=== PATIENT | female | born 1940 | race Caucasian/White ===

== ENCOUNTER 2017-05-07 16:24 | Inpatient (IN) ==
--- NOTE | 2017-05-07 16:44 | Emergency Department Note ---
Disposition Clinical Impression: Focal neurological deficit, Dysarthria Disposition: Admitted As Inpatient Condition: Fair Time of Disposition: 18:50 Neuro HPI - General Chief Complaint: ED Neuro Symptoms/Deficit Stated Complaint: Neuro sx x 7 days, intermittent confusion Source: patient, EMS Limitations: no limitations Nursing Notes Reviewed: Yes Vital Signs Reviewed: Yes - History of Present Illness HPI Narrative: Patient is a 76-year-old female with history of hyperlipidemia hypertension, thyroid disease and heart disease who complains of right arm weakness 6 days ago. Patient states states that he noticed her dropping remote control the patient complained that her right upper extremity was weak. He also noticed the patient was unsteady on her feet. He states that patient refused to come to the hospital but made her come today. Patient also states that she has some confusion. Patient admits to smoking, denies alcohol use and illicit drug use. - Related Data Home Medications: Home Medications Medication Instructions Recorded Confirmed Acyclovir [Zovirax] 800 mg PO QID 05/07/17 05/07/17 Amlodipine Besylate 10 mg PO DAILY 05/07/17 05/07/17 Aspirin 325 mg PO DAILY 05/07/17 05/07/17 Atenolol 100 mg PO DAILY 05/07/17 05/07/17 Atorvastatin [Lipitor] 40 mg PO HS 05/07/17 05/07/17 Clopidogrel [Plavix] 75 mg PO DAILY 05/07/17 05/07/17 Cyclobenzaprine [Flexeril] 10 mg PO HS PRN 05/07/17 05/07/17 Diclofenac Sodium/Misoprostol 1 each PO BID 05/07/17 05/07/17 [Arthrotec 75 mg-200 Mcg Tab] Levothyroxine [Synthroid] 112 mcg PO 0630 05/07/17 05/07/17 Lisinopril [Zestril] 10 mg PO BID 05/07/17 05/07/17 Omeprazole [PriLOSEC] 40 mg PO DAILY PRN 05/07/17 05/07/17 Tramadol HCl [Ultram] 50 mg PO BID PRN 05/07/17 05/07/17 Zolpidem [Ambien] 10 mg PO HS PRN 05/07/17 05/07/17 Allergies/Adverse Reactions: Allergies Allergy/AdvReac Type Severity Reaction Status Date / Time Sulfa (Sulfonamide Allergy Hives Verified 03/30/17 11:03 Antibiotics) Review of Systems: Denies fever, chills, nausea, vomiting, diarrhea, chest pain, shortness of breath, abdominal pain, dysuria, hematuria, diarrhea, melena, hematochezia. All systems ED: reviewed and negative except as stated. Review of Systems: As Per HPI Past Medical History - Past Medical History Attestation: Yes The following information was validated with the patient. Source: patient Medical history: Reports: coronary artery disease, hyperlipidemia, hypertension , thyroid disease Psychiatric history: Reports: no psych history - Social History Smoking Status: Current every day smoker Smokeless Tobacco Status: No Alcohol use: Reports: none Drug use: Reports: none Physical Exam Patient is a 76-year-old female who is alert and oriented 3. Patient has some mild difficulty formulating her thoughts but has no dysarthria or dysphagia - General Limitations: no limitations General appearance: alert - Head Head exam: atraumatic, normocephalic, normal inspection - Eye Eye exam: Present: normal appearance, PERRL, EOMI - ENT ENT exam: normal exam, normal oropharynx, mucous membranes moist - Neck Neck exam: Present: normal inspection, full ROM, trachea midline - Chest Chest inspection: Present: normal inspection, symmetric chest wall rise - Respiratory Respiratory exam: Present: normal lung sounds bilaterally - Cardiovascular Cardiovascular exam: Present: regular rate, normal rhythm, normal heart sounds - Abdominal Exam Abdominal exam: Present: soft, Non-Tender. Absent: tenderness, distention, guarding, rebound, rigidity - Extremities Exam Extremities exam: Present: normal inspection, full ROM. Absent: tenderness, pedal edema - Expanded Lower Extremity Exam Hip/Pelvis exam: Present: normal inspection, full ROM Upper leg exam: Present: normal inspection, full ROM Knee exam: Present: normal inspection, full ROM Lower leg exam: Present: normal inspection, full ROM Ankle exam: Present: normal inspection, full ROM Foot/toe exam: Present: normal inspection, full ROM Neurovascular/Tendon exam: Absent: motor deficit, sensory deficit, tendon deficit - Back Exam Back exam: Present: normal inspection, full ROM. Absent: tenderness, CVA tenderness (R), CVA tenderness (L) - Neurological Exam Neurological exam: Present: alert, oriented X3, CN II-XII intact - Skin Skin exam: Present: warm, dry, intact, normal color Course - Reevaluation(s) Reevaluation #1: CBC, BMP, troponin, chest x-ray, UA, CT head Time: 16:30 Reevaluation #2: Patient has intermittent slurring of words and still has difficulty articulating at times. Other times patient is able to speak clearly. No new symptoms Time: 17:00 Reevaluation #3: Waiting for urine Time: 17:30 Additional Reevaluation(s): Patient vital signs are normal Patient is doing well with no new symptoms but no improvements. Patient accepts decision for admission - Consultations Consultation #1: Patient was accepted for admission by Madalyn Pearson [facility] hospitalist Time: 18:40 Vital Signs Temperature 98.6 F 05/07/17 16:24 Pulse Rate 62 05/07/17 16:24 Respiratory Rate 18 05/07/17 16:24 Blood Pressure 126/92 05/07/17 16:24 O2 Sat by Pulse Oximetry 93 05/07/17 16:24 Temperature 97.5 F L 05/07/17 19:14 Pulse Rate 101 05/07/17 19:14 Respiratory Rate 14 05/07/17 19:14 Blood Pressure 140/85 05/07/17 19:14 O2 Sat by Pulse Oximetry 95 05/07/17 19:14 Oxygen Delivery Oxygen Delivery Nasal Cannula Neuro Symptoms/Deficit - MDM Narrative Medical decision making narrative: Patient presented to the emergency department with focal neurological symptoms of right upper extremity and right lower extremity weakness with difficulty articulating and slurring of words as noticed by her who is at bedside. 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 Patient able to hold up right lower extremity without any drift. Patient's lab workup exhibited acute kidney injury with elevation of BUN and creatinine. Urinalysis showed no UTI. CT scan of the head was negative for any intra-cranial abnormality. Chest x-ray was negative for any acute cardiopulmonary abnormalities. Patient is currently stable condition. Patient excepts decision to admit for further workup and evaluation. Patient was accepted for admission by Madalyn Pearson [facility] hospitalist - Lab Data Lab results reviewed: Yes I reviewed the patient's lab results. Lab results narrative: Short CBC 05/07/17 Range/Units 17:11 WBC 7.4 (4.3-11.1) K/mcL Hgb 12.2 (11.5-15.4) g/dL Hct 36.8 (35.3-44.9) % Plt Count 196 (140-400) K/mcL Neutrophils # 5.2 (1.6-8.9) K/mcL BMP 05/07/17 Range/Units 17:11 Sodium 140 (136-145) mEq/L Potassium 3.5 (3.5-4.5) mEq/L Chloride 107 (98-109) mEq/L Carbon Dioxide 23 (19-29) mEq/L BUN 25 H (7-20) mg/dL Creatinine 1.12 H (0.57-1.11) mg/dL Glucose 119 H (70-99) mg/dL Calcium 9.0 (8.6-10.8) mg/dL Cardiac Enzymes 05/07/17 Range/Units 17:11 Troponin I 0.03 (0-0.03) ng/mL Urine 05/07/17 Range/Units 17:51 Urine Color Yellow (Yellow) Urine Clarity Clear (Clear) Urine pH 5.0 (5.0-8.0) pH Units Ur Specific [place] 1.020 (1.010-1.025) Urine Protein Negative (Neg-Trace) mg/dL Urine Glucose (UA) Normal (Normal) mg/dL Result diagrams: 05/07/17 17:11 05/07/17 17:11 Lab Results 05/07/17 05/07/17 05/07/17 Range/Units 16:32 17:11 17:11 WBC 7.4 (4.3-11.1) K/mcL RBC 4.00 (3.82-4.97) M/mcL Hgb 12.2 (11.5-15.4) g/dL Hct 36.8 (35.3-44.9) % MCV 92.0 (83.0-100.0) fL MCH 30.5 (28.0-33.3) pg MCHC 33.2 (31.6-35.5) g/dL RDW 14.4 (11.5-14.5) % Plt Count 196 (140-400) K/mcL MPV 9.5 (9.4-12.4) fL Immature Gran % 0.3 (0-4) % Seg Neutrophils % 70.5 % Lymphocytes % 20.0 % Monocytes % 7.4 % Eosinophils % 1.5 % Basophils % 0.3 % Neutrophils # 5.2 (1.6-8.9) K/mcL Lymphocytes # 1.5 (0.6-4.6) K/mcL Monocytes # 0.6 (0.0-1.3) K/mcL Eosinophils # 0.1 (0.0-0.6) K/mcL Basophils # 0.0 (0.0-0.2) K/mcL Immature Plt Fraction 1.5 (1.1-6.1) % Sodium 140 (136-145) mEq/L Potassium 3.5 (3.5-4.5) mEq/L Chloride 107 (98-109) mEq/L Carbon Dioxide 23 (19-29) mEq/L BUN 25 H (7-20) mg/dL Creatinine 1.12 H (0.57-1.11) mg/dL Est GFR ( Amer) 57 L (> 60) Est GFR (Non-Af Amer) 47 L (> 60) BUN/Creatinine Ratio 22 (6-26) Glucose 119 H (70-99) mg/dL POC Glucose 123 H (58-89) Calculated Osmolality 296 (280-300) Calcium 9.0 (8.6-10.8) mg/dL Troponin I (0-0.03) ng/mL Urine Color (Yellow) Urine Clarity (Clear) Urine pH (5.0-8.0) pH Units Ur Specific [place] (1.010-1.025) Urine Protein (Neg-Trace) mg/dL Urine Glucose (UA) (Normal) mg/dL Urine Ketones (Negative) mg/dL Urine Blood (Negative) Urine Nitrite (Negative) Urine Bilirubin (Negative) Urine Urobilinogen (Normal) mg/dL Ur Leukocyte Esterase (Negative) Ur Culture Indicated? (NO) 05/07/17 05/07/17 Range/Units 17:11 17:51 WBC (4.3-11.1) K/mcL RBC (3.82-4.97) M/mcL Hgb (11.5-15.4) g/dL Hct (35.3-44.9) % MCV (83.0-100.0) fL MCH (28.0-33.3) pg MCHC (31.6-35.5) g/dL RDW (11.5-14.5) % Plt Count (140-400) K/mcL MPV (9.4-12.4) fL Immature Gran % (0-4) % Seg Neutrophils % % Lymphocytes % % Monocytes % % Eosinophils % % Basophils % % Neutrophils # (1.6-8.9) K/mcL Lymphocytes # (0.6-4.6) K/mcL Monocytes # (0.0-1.3) K/mcL Eosinophils # (0.0-0.6) K/mcL Basophils # (0.0-0.2) K/mcL Immature Plt Fraction (1.1-6.1) % Sodium (136-145) mEq/L Potassium (3.5-4.5) mEq/L Chloride (98-109) mEq/L Carbon Dioxide (19-29) mEq/L BUN (7-20) mg/dL Creatinine (0.57-1.11) mg/dL Est GFR ( Amer) (> 60) Est GFR (Non-Af Amer) (> 60) BUN/Creatinine Ratio (6-26) Glucose (70-99) mg/dL POC Glucose (58-89) Calculated Osmolality (280-300) Calcium (8.6-10.8) mg/dL Troponin I 0.03 (0-0.03) ng/mL Urine Color Yellow (Yellow) Urine Clarity Clear (Clear) Urine pH 5.0 (5.0-8.0) pH Units Ur Specific [place] 1.020 (1.010-1.025) Urine Protein Negative (Neg-Trace) mg/dL Urine Glucose (UA) Normal (Normal) mg/dL Urine Ketones Trace H (Negative) mg/dL Urine Blood Negative (Negative) Urine Nitrite Negative (Negative) Urine Bilirubin Small H (Negative) Urine Urobilinogen Normal (Normal) mg/dL Ur Leukocyte Esterase Negative (Negative) Ur Culture Indicated? NO (NO) - Radiology Data Radiology results reviewed: Yes I reviewed the patient's radiology results. Chest X-Ray 05/07/17 16:42 IMPRESSION: No acute cardiac or pulmonary disease. D/ / Blaine Raygoza MD / Blaine Raygoza MD Interpreting Provider: Blaine Raygoza MD Head CT 05/07/17 16:42 IMPRESSION: No acute intracranial abnormality. D/ / Cruz Schmitt MD / Cruz Schmitt MD Interpreting Provider: Cruz Schmitt MD - EKG Data EKG attestation: Yes I reviewed and interpreted this EKG. EKG results narrative: EKG taken 05/07/2017 at 1634 hrs. shows sinus with a first-degree AV block at a rate of [address] elevations in the lead widened QT prolongation. No Wellens no brugada adn no scarbosa. Previous EKG for comparison shows sinus bradycardia at a rate of 54 beats minute no acute ST elevations or depressions in any leads widened QT prolongation, there is inverted T waves in lead 3. NIH Stroke Scale - Level of Consciousness LOC: Alert - LOC Questions LOC Questions: Answers both correctly - LOC Commands LOC Commands: Performs both correctly - Best Gaze Best Gaze: Normal - Visual Visual: No visual loss - Facial Palsy Facial Palsy: Normal - Motor Arms Motor Arm-Left: No drift for 10 seconds Motor Arm-Right: No drift for 10 seconds - Motor Legs Motor Leg-Left: No drift for 5 seconds Motor Leg-Right: No drift for 5 seconds - Limb Ataxia Limb Ataxia: Absent of affected limb too weak to perform exam - Sensory Sensory: Normal - Best Language Best Language: No aphasia - Dysarthria Dysarthria: Mild, slurs some words - Extinction and Inattention Extinction and Inattention: Normal - NIHSS Total Score NIHSS Total Score: 1 TPA Checklist - LKW: 3-4.5 hrs Add. Warnings/Precautions Patient/family understanding: The patient/family members have been counseled and understood the risk, benefit , and alternatives of treatment.
[2017-05-07] MEDS ORDERED: Aspirin 81 MG TAB.CHEW PO ONE (16:49)
[2017-05-07 17:19] LABS: Basophils % 0.3 %; Eosinophils % 1.5 %; Hematocrit 36.8 % (35.3-44.9); Hemoglobin 12.2 g/dL (11.5-15.4); Immature Granulocytes % 0.3 % (0-4); Immature Platelets 1.5 % (1.1-6.1); Lymphocytes # 1.5 K/mcL (0.6-4.6); Mean Corpuscular HGB Conc 33.2 g/dL (31.6-35.5); Mean Corpuscular Hemoglobin 30.5 pg (28.0-33.3); Mean Platelet Volume 9.5 fL (9.4-12.4); Monocytes # 0.6 K/mcL (0.0-1.3); Monocytes % 7.4 %; Neutrophils # 5.2 K/mcL (1.6-8.9); Platelet Count 196 K/mcL (140-400); Red Cell Distribution Width 14.4 % (11.5-14.5); Segmented Neutrophils % 70.5 %
[2017-05-07 17:20] LABS: Eosinophils # 0.1 K/mcL (0.0-0.6)
[2017-05-07 17:31] LABS: Potassium 3.5 mEq/L (3.5-4.5)
[2017-05-07 18:02] LABS: Bilirubin,Urine Small (Negative); Blood,Urine Negative (Negative); Clarity,Urine Clear (Clear); Color,Urine Yellow (Yellow); Glucose,Urine (UA) Normal (Normal); Ketones,Urine Trace mg/dL (Negative); Leukocyte Esterase,Urine Negative (Negative); Nitrite,Urine Negative (Negative); Protein,Urine Negative (Neg-Trace); Urobilinogen,Urine Normal (Normal)
[2017-05-07] MEDS ORDERED: traMADol 50 MG TABLET PO PRN (22:11)
[2017-05-07] MEDS ORDERED: Naloxone 0.4 MG/ML INJ IVP PRN (22:13)
--- NOTE | 2017-05-07 22:20 | Internal Med History&Physical ---
Date of Encounter: 05/07/17 Time of Encounter: 22:17 Assessment and Plan (1) Focal neurological deficit Current visit: Yes Status: Acute suspicion for subacute CVA per clinical hx alone. Exam impressive for dysarthria , some mild RUE weakness but not significant. Will need MRI brain CVA protocol. Further w/u pending MRI brain result. PT, speech eval, modified diet, aspiration risk for now. IVF for now (2) Dysarthria Current visit: Yes Status: Acute w/u as above (3) HTN (hypertension), benign Current visit: Yes Status: Acute trend BP for now. Continue med. Avoid low BP (4) Hypothyroid Current visit: Yes Status: Acute continue med Qualifiers: Hypothyroidism type: acquired Qualified Code(s): E03.9 - Hypothyroidism, unspecified Internal Medicine - H&P: HPI Chief complaint: R arm weakness, unsteadiness, dysarthria History of present illness: Ms. Santos is a 76 year old female who presents with 1 week hx of R arm weakness, unsteadiness, dysarthria She presented to the ED at the urging of her . reported 1 week hx of mild right arm weakness, dropping things on RUE. Also some unsteadiness of the feet, dizziness. Had some recurrent symptoms at 1 pm this afternoon. Speech also notably abnormal from baseline per . She has a hx of HTN, HLD , hypothyroid. Admitted with suspicion for subacute CVA. She denies hx of CVA/ TIA prior CT/CT head/brain wo con IMPRESSION: No acute intracranial abnormality. XR/XR chest 1V portable IMPRESSION: No acute cardiac or pulmonary disease. Past Med Surg Social Fam HX - Past Medical History Medical history: coronary artery disease, hyperlipidemia, hypertension, thyroid disease Psychiatric history: no psych history - Social History Smoking Status: Current every day smoker Packs per day: 1/2 pack Smokeless Tobacco Status: No Alcohol use: none Drug use: none - Family History Father Living Status: Hx Family Cardiac Disorders: Yes ([place]) Internal Medicine - H&P: Meds Acyclovir [Zovirax] 800 mg PO QID 05/07/17 [History] Amlodipine Besylate 10 mg PO DAILY 05/07/17 [History] Aspirin 325 mg PO DAILY 05/07/17 [History] Atenolol 100 mg PO DAILY 05/07/17 [History] Atorvastatin [Lipitor] 40 mg PO HS 05/07/17 [History] Clopidogrel [Plavix] 75 mg PO DAILY 05/07/17 [History] Cyclobenzaprine [Flexeril] 10 mg PO HS PRN 05/07/17 [History] Diclofenac Sodium/Misoprostol [Arthrotec 75 mg-200 Mcg Tab] 1 each PO BID [History] Levothyroxine [Synthroid] 112 mcg PO 30 05/07/17 [History] Lisinopril [Zestril] 10 mg PO BID 05/07/17 [History] Omeprazole [PriLOSEC] 40 mg PO DAILY PRN 05/07/17 [History] Tramadol HCl [Ultram] 50 mg PO BID PRN 05/07/17 [History] Zolpidem [Ambien] 10 mg PO HS PRN 05/07/17 [History] 3 Allergy/AdvReac Type Severity Reaction Status Date / Time Sulfa (Sulfonamide Allergy Hives Verified 03/30/17 11:03 Antibiotics) All Systems PM: A 10-system review of systems was performed and is negative for pertinent findings except as documented above in the HPI. Review of systems: ROS 14 point review of systems reviewed as best as possible given presentation. Pertinent positive or negative as per HPI or otherwise reviewed as negative - Constitutional Vitals: Temp Pulse Resp BP Pulse Ox 97.5 F L 101 14 140/85 95 05/07/17 19:14 05/07/17 19:14 05/07/17 19:14 05/07/17 19:14 05/07/17 19:14 Exam: General - AAO x 3 Psych - Appropriate affect/speech. No agitation Eyes - KAYLEEN. Eye lids intact. No scleral icterus Neuro - Prominent dysarthria, lack of fluency, RUE power 4+/5, otherwise no gross peripheral or central neuro deficits with intact CN 2-12 exam Heart - Sinus. RRR. S1 and S2 present. No added HS/murmurs appreciated. No elevated JVD appreciated. No calf swellings/erythema Lung - Adequate air entry b/l, No crackes/wheezes appreciated GI - Soft, non-tender. No hepatosplenomegaly/ascites. BS+ - No CVA/suprapubic tenderness or palpable bladder distension Skin - Intact. No rash/petechiae/ecchymosis. Warm extremities MSK - Joints with normal ROM. No joint swellings Internal Med - H&P Results - Labs CBC & Chem 7: 05/07/17 17:11 05/07/17 17:11
[2017-05-07] MEDS: Ringers Solution, Lactated 1,000 ML IVC SCH (23:24)
[2017-05-08] MEDS ORDERED: *HR* Enoxaparin 40 MG/0.4 ML SYRINGE SQ SCH (06:00)
[2017-05-08 06:26] LABS: Basophils % 0.1 %; Eosinophils # 0.2 K/mcL (0.0-0.6); Eosinophils % 3.1 %; Hematocrit 35.9 % (35.3-44.9); Hemoglobin 11.4 g/dL (11.5-15.4); Immature Granulocytes % 0.1 % (0-4); Lymphocytes # 2.4 K/mcL (0.6-4.6); Lymphocytes % 30.8 %; Mean Corpuscular HGB Conc 31.8 g/dL (31.6-35.5); Mean Corpuscular Hemoglobin 29.3 pg (28.0-33.3); Mean Corpuscular Volume 92.3 fL (83.0-100.0); Mean Platelet Volume 9.5 fL (9.4-12.4); Monocytes % 12.8 %; Neutrophils # 4.2 K/mcL (1.6-8.9); Platelet Count 189 K/mcL (140-400); Red Blood Count 3.89 M/mcL (3.82-4.97); Red Cell Distribution Width 14.6 % (11.5-14.5); Segmented Neutrophils % 53.1 %
[2017-05-08 06:40] LABS: BUN/Creatinine Ratio 23 (6-26); Blood Urea Nitrogen 16 mg/dL (7-20); Calcium 8.8 mg/dL (8.6-10.8); Carbon Dioxide 28 mEq/L (19-29); Chloride 109 mEq/L (98-109); Glucose 75 mg/dL (70-99); Osmolality,Calculated 298 (280-300); Potassium 3.4 mEq/L (3.5-4.5); Sodium 144 mEq/L (136-145); eGFR For African Americans > 60 (> 60); eGFR For Non-African Americans > 60 (> 60)
[2017-05-08] MEDS ORDERED: amLODIPine 5 MG TABLET PO SCH (09:00)
[2017-05-08] MEDS ORDERED: Aspirin 325 MG TABLET PO SCH (09:00)
[2017-05-08] MEDS ORDERED: DICLOFENAC SODIUM PO SCH (09:00)
[2017-05-08] MEDS ORDERED: [UNRECOGNIZED DRUG - OTHER] PO SCH (09:00)
[2017-05-08] MEDS ORDERED: Diclofenac Sodium 75 MG TABLET PO SCH (09:00)
[2017-05-08] MEDS ORDERED: MISOPROSTOL PO SCH (09:00)
[2017-05-08] MEDS ORDERED: miSOPROStol 100 MCG TABLET PO SCH (09:00)
[2017-05-08] MEDS: Ringers Solution, Lactated 1,000 ML IVC SCH (10:12)
[2017-05-08 11:29] VITALS: BP 132/67
--- NOTE | 2017-05-08 13:58 | Discharge Summary ---
Date of Encounter: 05/08/17 Time of Encounter: 10:20 - Discharge Diagnosis (1) Weakness of right arm Priority: Primary Status: Resolved Comments: r/o CVA (2) Dizziness Priority: Primary Status: Resolved (3) HTN (hypertension) Priority: Secondary Status: Acute Qualifiers: Hypertension type: essential hypertension Qualified Code(s): I10 - Essential (primary) hypertension (4) Hypothyroid Priority: Secondary Status: Acute Qualifiers: Hypothyroidism type: acquired Qualified Code(s): E03.9 - Hypothyroidism, unspecified (5) GERD (gastroesophageal reflux disease) Priority: Secondary Status: Acute Qualifiers: Esophagitis presence: without esophagitis Qualified Code(s): K21.9 - Gastro -esophageal reflux disease without esophagitis - Discharge Medications Home Medications: Acyclovir [Zovirax] 800 mg PO QID 05/07/17 [History] Amlodipine Besylate 10 mg PO DAILY 05/07/17 [History] Aspirin 325 mg PO DAILY 05/07/17 [History] Atenolol 100 mg PO DAILY 05/07/17 [History] Atorvastatin [Lipitor] 40 mg PO HS 05/07/17 [History] Clopidogrel [Plavix] 75 mg PO DAILY 05/07/17 [History] Cyclobenzaprine [Flexeril] 10 mg PO HS PRN 05/07/17 [History] Levothyroxine [Synthroid] 112 mcg PO 0630 05/07/17 [History] Lisinopril [Zestril] 10 mg PO BID 05/07/17 [History] Omeprazole [PriLOSEC] 40 mg PO DAILY PRN 05/07/17 [History] Tramadol HCl [Ultram] 50 mg PO BID PRN 05/07/17 [History] Zolpidem [Ambien] 10 mg PO HS PRN 05/07/17 [History] Allergies/Adverse Reactions: 3 Allergy/AdvReac Type Severity Reaction Status Date / Time Sulfa (Sulfonamide Allergy Hives Verified 03/30/17 11:03 Antibiotics) Procedures/tests Complete & Pending: Procedures Performed prior 72 hours Category Date Time Status MR head/brain wo con [MR] Stat MRI 05/07/17 22:15 Completed Date of admission: 05/07/17 22:13 Primary care physician: Nicole Moraes CNP Consults: 05/08/17 10:15 OT [Consult to Occupational Therapy] [CONS] Routine Comment: Evaluate, develop and implement POC Reason for Consult: ambulatory dysfunction - Patient Status Disposition: Home, Self-Care Condition: Good Overall status at discharge: patient is back to baseline - Discharge Instructions Follow Up With: Nicole Moraes CNP [Primary Care Provider] - - Diet and Activity Activity: increase activity as tolerated Diet: low salt diet Hospital course: Ms. Santos is a 76 year old female who presents with 1 week hx of R arm weakness, unsteadiness, dysarthria. She presented to the ED at the urging of her . reported 1 week hx of mild right arm weakness, dropping things on RUE. Also some unsteadiness of the feet, dizziness. Had some recurrent symptoms at 1 pm this afternoon. Speech also notably abnormal from baseline per . She has a hx of HTN, HLD, hypothyroid. Admitted with suspicion for subacute CVA. She denies hx of CVA/TIA prior. 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 Continued her home anti platelet meds ASA and Plavix. Her CT of head did not show any acute hemorrhage / infractions. She did have MRI fo brain done today which did not show any acute infractions. On my examination I did not notice any focal neuro deficits. She was able to carry stuff through her Rt UE ok, with out any accidents. Pt also stated she does not have any more weakens in her Rt arm and also denied any more dizziness. Pt was evaluated by our PT / OT who cleared her to go home. So will d/c her home in stable condition today. - Time Spent with Patient Total time spent providing and/or coordinating discharge services: - Constitutional Vitals: Temp Pulse Resp BP Pulse Ox 97.5 F L 62 18 132/67 92 05/08/17 11:23 05/08/17 11:23 05/08/17 11:23 05/08/17 11:23 05/08/17 11:23 General appearance: Present: A&O X 3, pleasant, no acute distress, answers questions appropriately - Head Head exam: Present: atraumatic, normal inspection - Respiratory Respiratory exam: Present: decreased breath sounds. Absent: respiratory distress, rhonchi, wheezes - Cardiovascular Cardiovascular exam: Present: RRR, +S1, +S2. Absent: systolic murmur - GI/Abdominal GI/Abdominal exam: Present: normal bowel sounds, soft, no peritoneal signs. Absent: distended, tenderness - Extremities Exam Extremities exam: Absent: calf tenderness, pedal edema - Neurological Exam Neurological exam: Present: alert, oriented X3, reflexes normal, no focal deficits, strengths equal and symetr throughout. Absent: pronater drift, facial droop, speech deficit - Psychiatric Psychiatric exam: Present: normal affect, normal mood
--- NOTE | 2017-05-08 17:02 | Electrocardiograph Report ---
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
== END 2017-05-08 15:02 | disposition home or self-care (01) | DRG 948 ==
LOC: EMEROO 16:24 → 3ANU 16:24
PROVIDERS: ADMIT Nurse Practitioner Acute Care; ATTEND Family Medicine

== ENCOUNTER 2017-06-05 11:51 | Inpatient (IN) ==
--- NOTE | 2017-06-05 12:13 | Emergency Department Note ---
Disposition Clinical Impression: Generalized weakness, Multiple falls, Elevated troponin I level, Dehydration, Hypomagnesemia Disposition: Admitted As Inpatient Condition: Undetermined General Adult HPI - General Chief complaint: ED Weakness Stated complaint: extremity weakness Time Seen by Provider: 06/05/17 12:09 Source: patient, family Limitations: no limitations - History of Present Illness Pain Scale: 0 - Related Data Home Medications Medication Instructions Recorded Confirmed Amlodipine Besylate 10 mg PO DAILY 05/07/17 06/05/17 Aspirin 325 mg PO DAILY 05/07/17 06/05/17 Atenolol 100 mg PO DAILY 05/07/17 06/05/17 Atorvastatin [Lipitor] 40 mg PO HS 05/07/17 06/05/17 Clopidogrel [Plavix] 75 mg PO DAILY 05/07/17 06/05/17 Cyclobenzaprine [Flexeril] 10 mg PO HS PRN 05/07/17 06/05/17 Levothyroxine [Synthroid] 112 mcg PO 0630 05/07/17 06/05/17 Lisinopril [Zestril] 10 mg PO BID 05/07/17 06/05/17 Omeprazole [PriLOSEC] 40 mg PO DAILY PRN 05/07/17 06/05/17 Tramadol HCl [Ultram] 50 mg PO BID PRN 05/07/17 06/05/17 Zolpidem [Ambien] 10 mg PO HS PRN 05/07/17 06/05/17 Diclofenac Potassium 50 mg PO BID 06/05/17 06/05/17 Sucralfate [Carafate] 1 gm PO BID 06/05/17 06/05/17 Allergies Allergy/AdvReac Type Severity Reaction Status Date / Time Sulfa (Sulfonamide Allergy Hives Verified 06/05/17 11:59 Antibiotics) Past Medical History - Past Medical History Medical history: Reports: coronary artery disease, hyperlipidemia, hypertension , thyroid disease Psychiatric history: Reports: no psych history - Social History Smoking Status: Current every day smoker Smokeless Tobacco Status: No Alcohol use: Reports: none Drug use: Reports: none Physical Exam - General Limitations: no limitations General appearance: alert, in no apparent distress Course Vital Signs Temperature 97.9 F 06/05/17 11:59 Pulse Rate 59 06/05/17 11:59 Respiratory Rate 18 06/05/17 11:59 Blood Pressure 84/50 06/05/17 11:59 O2 Sat by Pulse Oximetry 97 06/05/17 11:59 Temperature 97.9 F 06/06/17 06:38 Pulse Rate 75 06/06/17 06:38 Respiratory Rate 16 06/06/17 06:38 Blood Pressure 100/54 06/06/17 06:38 O2 Sat by Pulse Oximetry 91 06/06/17 06:38 Oxygen Delivery Oxygen Delivery Room Air Medical Decision Making - Lab Data Result diagrams: 06/06/17 02:59 06/06/17 02:59 Lab Results 06/05/17 06/05/17 06/05/17 Range/Units 13:14 13:14 13:14 WBC 10.7 (4.3-11.1) K/mcL RBC 3.92 (3.82-4.97) M/mcL Hgb 12.1 (11.5-15.4) g/dL Hct 36.5 (35.3-44.9) % MCV 93.1 (83.0-100.0) fL MCH 30.9 (28.0-33.3) pg MCHC 33.2 (31.6-35.5) g/dL RDW 15.1 H (11.5-14.5) % Plt Count 225 (140-400) K/mcL MPV 9.6 (9.4-12.4) fL Immature Gran % 0.3 (0-4) % Seg Neutrophils % 71.7 % Lymphocytes % 17.1 % Monocytes % 9.2 % Eosinophils % 1.5 % Basophils % 0.2 % Neutrophils # 7.6 (1.6-8.9) K/mcL Lymphocytes # 1.8 (0.6-4.6) K/mcL Monocytes # 1.0 (0.0-1.3) K/mcL Eosinophils # 0.2 (0.0-0.6) K/mcL Basophils # 0.0 (0.0-0.2) K/mcL Sodium 140 (136-145) mEq/L Potassium 3.5 (3.5-4.5) mEq/L Chloride 106 (98-109) mEq/L Carbon Dioxide 24 (19-29) mEq/L BUN 24 H (7-20) mg/dL Creatinine 1.13 H (0.57-1.11) mg/dL Est GFR ( Amer) 57 L (> 60) Est GFR (Non-Af Amer) 47 L (> 60) BUN/Creatinine Ratio 21 (6-26) Glucose 86 (70-99) mg/dL Calculated Osmolality 293 (280-300) Lactic Acid 0.7 (0.5-2.2) mmol/L Calcium 8.3 L (8.6-10.8) mg/dL Phosphorus 2.8 (2.3-4.7) mg/dL Magnesium 1.4 L (1.6-2.6) mg/dL Total Bilirubin 0.6 (0.2-1.2) mg/dL AST 43 H (5-34) Units/L ALT 20 (0-55) Units/L Alkaline Phosphatase 115 (38-126) Units/L Creatine Kinase 721 H (29-168) Units/L Troponin I (0-0.03) ng/mL Serum Total Protein 5.5 L (6.0-8.3) g/dL Albumin 2.4 L (3.5-5.0) g/dL Globulin 3.1 (2.4-3.5) g/dL Albumin/Globulin Ratio 0.8 L (1.1-2.2) TSH 0.018 L (0.350-4.840) mcIU/mL Urine Color (Yellow) Urine Clarity (Clear) Urine pH (5.0-8.0) pH Units Ur Specific [place] (1.010-1.025) Urine Protein (Neg-Trace) mg/dL Urine Glucose (UA) (Normal) mg/dL Urine Ketones (Negative) mg/dL Urine Blood (Negative) Urine Nitrite (Negative) Urine Bilirubin (Negative) Urine Urobilinogen (Normal) mg/dL Ur Leukocyte Esterase (Negative) Ur Culture Indicated? (NO) 06/05/17 06/05/17 Range/Units 13:14 14:32 WBC (4.3-11.1) K/mcL RBC (3.82-4.97) M/mcL Hgb (11.5-15.4) g/dL Hct (35.3-44.9) % MCV (83.0-100.0) fL MCH (28.0-33.3) pg MCHC (31.6-35.5) g/dL RDW (11.5-14.5) % Plt Count (140-400) K/mcL MPV (9.4-12.4) fL Immature Gran % (0-4) % Seg Neutrophils % % Lymphocytes % % Monocytes % % Eosinophils % % Basophils % % Neutrophils # (1.6-8.9) K/mcL Lymphocytes # (0.6-4.6) K/mcL Monocytes # (0.0-1.3) K/mcL Eosinophils # (0.0-0.6) K/mcL Basophils # (0.0-0.2) K/mcL Sodium (136-145) mEq/L Potassium (3.5-4.5) mEq/L Chloride (98-109) mEq/L Carbon Dioxide (19-29) mEq/L BUN (7-20) mg/dL Creatinine (0.57-1.11) mg/dL Est GFR ( Amer) (> 60) Est GFR (Non-Af Amer) (> 60) BUN/Creatinine Ratio (6-26) Glucose (70-99) mg/dL Calculated Osmolality (280-300) Lactic Acid (0.5-2.2) mmol/L Calcium (8.6-10.8) mg/dL Phosphorus (2.3-4.7) mg/dL Magnesium (1.6-2.6) mg/dL Total Bilirubin (0.2-1.2) mg/dL AST (5-34) Units/L ALT (0-55) Units/L Alkaline Phosphatase (38-126) Units/L Creatine Kinase (29-168) Units/L Troponin I 0.04 H* (0-0.03) ng/mL Serum Total Protein (6.0-8.3) g/dL Albumin (3.5-5.0) g/dL Globulin (2.4-3.5) g/dL Albumin/Globulin Ratio (1.1-2.2) TSH (0.350-4.840) mcIU/mL Urine Color Yellow (Yellow) Urine Clarity Clear (Clear) Urine pH 6.0 (5.0-8.0) pH Units Ur Specific [place] 1.007 L (1.010-1.025) Urine Protein Negative (Neg-Trace) mg/dL Urine Glucose (UA) Normal (Normal) mg/dL Urine Ketones Trace H (Negative) mg/dL Urine Blood Negative (Negative) Urine Nitrite Negative (Negative) Urine Bilirubin Negative (Negative) Urine Urobilinogen Normal (Normal) mg/dL Ur Leukocyte Esterase Negative (Negative) Ur Culture Indicated? NO (NO) Attestation Statement - Attestation Attestation: I examined this patient and my medical decision-making was reviewed with the Resident Physician. I agree with the documented findings, disposition and treatment plan as described except to the extent set forth below. Face to face time provided in conjunction with the resident physician Dr. Dutton Patient experiences bilateral shakiness of her arms when she ambulates and exerts herself. This has been progressive over the past several weeks. Occasional falls. Appears in no acute distress on exam. No focal weakness
[2017-06-05] MEDS ORDERED: 0.9 % Sodium Chloride 1,000 ML IVC ONE (12:21)
--- NOTE | 2017-06-05 12:23 | Emergency Department Note ---
Disposition Clinical Impression: Generalized weakness, Multiple falls, Elevated troponin I level, Dehydration, Hypomagnesemia Disposition: Admitted As Inpatient Condition: Fair Time of Disposition: 14:10 Weakness HPI - General Chief complaint: ED Weakness Stated complaint: extremity weakness Time Seen by Provider: 06/05/17 12:09 Source: patient, family Limitations: no limitations Nursing Notes Reviewed: Yes Vital Signs Reviewed: Yes - History of Present Illness HPI Narrative: 76-year-old female is referred hypertension, PAD, hypothyroidism, with generalized weakness and shaking in bilateral upper and lower extremities. Patient states that she has had generalized weakness for last 5-6 weeks, over the last 2 weeks she has had multiple falls she indurates independently without a cane or walker has had a clutch the sides of brown and chairs to stabilize herself. Patient had small cut to her chin when she fell a couple days ago, she also hurt her right arm. No acute onset of weakness slurred speech or unilateral weakness in the last day. Generally she has been feeling much worse over last couple days. She is recently hospitalized May 08, where they did an MRI because they are concerned about right upper extremity weakness, but she states that aspirin to bilateral upper extremities and lower extremities and she had no stroke identified on MRI and records reviewed showed that she had mild small vessel ischemic disease but no evidence of stroke. Denies chest pain shortness of breath, she does report some decreased by mouth intake and a few pounds weight loss. She denies hemoptysis fever lower extremity edema, she endorses some claudication in the right lower extremity with walking that she describes as 3 out of 10 pain cramping in her right thigh where she does have a stent. I did speak with her , he did state that she has been more confused lately as well, she does not have a diagnosis of dementia Pt Subjective Complaint: generalized weakness/fatigue Onset (ago): week(s) Duration: intermittent Location: generalized, LUE, RUE, LLE, RLE Pain Severity: mild Pain Scale: 3 Improves with: none Worsens with: none Associated symptoms: Reports: confusion. Denies: chest pain, dark stools, diaphoresis, dysuria, easy bruising, fever/chills - Related Data Home Medications Medication Instructions Recorded Confirmed Amlodipine Besylate 10 mg PO DAILY 05/07/17 06/05/17 Aspirin 325 mg PO DAILY 05/07/17 06/05/17 Atenolol 100 mg PO DAILY 05/07/17 06/05/17 Atorvastatin [Lipitor] 40 mg PO HS 05/07/17 06/05/17 Clopidogrel [Plavix] 75 mg PO DAILY 05/07/17 06/05/17 Cyclobenzaprine [Flexeril] 10 mg PO HS PRN 05/07/17 06/05/17 Levothyroxine [Synthroid] 112 mcg PO 0630 05/07/17 06/05/17 Lisinopril [Zestril] 10 mg PO BID 05/07/17 06/05/17 Omeprazole [PriLOSEC] 40 mg PO DAILY PRN 05/07/17 06/05/17 Tramadol HCl [Ultram] 50 mg PO BID PRN 05/07/17 06/05/17 Zolpidem [Ambien] 10 mg PO HS PRN 05/07/17 06/05/17 Diclofenac Potassium 50 mg PO BID 06/05/17 06/05/17 Sucralfate [Carafate] 1 gm PO BID 06/05/17 06/05/17 Allergies Allergy/AdvReac Type Severity Reaction Status Date / Time Sulfa (Sulfonamide Allergy Hives Verified 06/05/17 11:59 Antibiotics) All systems ED: reviewed and negative except as stated. Review of Systems: As Per HPI Constitutional: Reports: as per HPI, weakness Cardiovascular: Denies: chest pain, palpitations Respiratory: Denies: cough, dyspnea Gastrointestinal: Denies: abdominal pain, nausea Genitourinary: Denies: urgency, dysuria Musculoskeletal: Denies: back pain Integumentary: Denies: rash Neurological: Reports: as per HPI, weakness, abnormal gait. Denies: headache, numbness, paresthesias Psychiatric: Denies: anxiety, depression Endocrine: Reports: as per HPI, fatigue Past Medical History - Past Medical History Attestation: Yes The following information was validated with the patient. Source: patient Medical history: Reports: coronary artery disease, hyperlipidemia, hypertension , thyroid disease Psychiatric history: Reports: no psych history - Social History Smoking Status: Current every day smoker Smokeless Tobacco Status: No Alcohol use: Reports: none Drug use: Reports: none Physical Exam Constitutional: Mild confused 76-year-old female in no acute distress appears dehydrated mildly hypotensive with a systolic blood pressure 88, Eyes: PERRLA, sclera anicteric ENT & Mouth: MM dry Neck: normal inspection, neck is supple Resp: CTA bilaterally, no resp distress CV: RRR, no m/g/r GI: normal inspection, soft, no guarding or rigidity MSK: Some tenderness to palpation with range of motion of the right elbow Neuro: A&O2, not oriented to date, CNII-XII grossly intact, mildly ataxic gait some shuffling, FISCHER, 5 out of 5 muscle strength upper and lower extremity, able to perform finger to nose, some dysdiadochokinesis with KATERINA NIH 0 Skin: on limited exam, skin intact with no rashes, healed abrasion to the right elbow, abrasion to the chin - General Limitations: age General appearance: alert, in no apparent distress, cachectic Course Course Narrative: 76-year-old female with generalized weakness and shakiness, I suspect that she may have a vascular dementia, and may also have Parkinson's disease given the duration of symptoms and also neurologic decline per her , as she is a difficult ambulation with multiple falls recently I will repeat his CT scan and check electrolytes basic lab work give her some fluids reassess orthostatics Accu-Chek plan is likely for admission for neurologic, behavioral and physical therapy needs - Reevaluation(s) Reevaluation #1: Patient without evidence of mild CK elevation, troponin was 0.04, she also has very low TSH suggesting hyperthyroid and she does currently take thyroid supplement, given elevated troponin generalized weakness frequent falls, plan for admission the hospitalist service Dr. Perdomo accepting and troponin no evidence for ACS given no chest pain or anginal symptoms likely her troponin leak is secondary to dehydration at this time will hold off on anticoagulation Time: 14:38 Vital Signs Temperature 97.9 F 06/05/17 11:59 Pulse Rate 59 06/05/17 11:59 Respiratory Rate 18 06/05/17 11:59 Blood Pressure 84/50 06/05/17 11:59 O2 Sat by Pulse Oximetry 97 06/05/17 11:59 Temperature 97.9 F 06/05/17 11:59 Pulse Rate 63 06/05/17 14:00 Respiratory Rate 18 06/05/17 14:33 Blood Pressure 100/65 06/05/17 14:33 O2 Sat by Pulse Oximetry 98 06/05/17 14:00 Oxygen Delivery Oxygen Delivery Room Air Weakness - Differential Diagnosis Differential Diagnosis: Likely: anemia, hypoglycemia, dehydration, metabolic - Medical Records Medical records reviewed: Yes I reviewed the patient's medical records. - Lab Data Lab results reviewed: Yes I reviewed the patient's lab results. Result diagrams: 06/05/17 13:14 06/05/17 13:14 Lab Results 06/05/17 06/05/17 06/05/17 Range/Units 13:14 13:14 13:14 WBC 10.7 (4.3-11.1) K/mcL RBC 3.92 (3.82-4.97) M/mcL Hgb 12.1 (11.5-15.4) g/dL Hct 36.5 (35.3-44.9) % MCV 93.1 (83.0-100.0) fL MCH 30.9 (28.0-33.3) pg MCHC 33.2 (31.6-35.5) g/dL RDW 15.1 H (11.5-14.5) % Plt Count 225 (140-400) K/mcL MPV 9.6 (9.4-12.4) fL Immature Gran % 0.3 (0-4) % Seg Neutrophils % 71.7 % Lymphocytes % 17.1 % Monocytes % 9.2 % Eosinophils % 1.5 % Basophils % 0.2 % Neutrophils # 7.6 (1.6-8.9) K/mcL Lymphocytes # 1.8 (0.6-4.6) K/mcL Monocytes # 1.0 (0.0-1.3) K/mcL Eosinophils # 0.2 (0.0-0.6) K/mcL Basophils # 0.0 (0.0-0.2) K/mcL Sodium 140 (136-145) mEq/L Potassium 3.5 (3.5-4.5) mEq/L Chloride 106 (98-109) mEq/L Carbon Dioxide 24 (19-29) mEq/L BUN 24 H (7-20) mg/dL Creatinine 1.13 H (0.57-1.11) mg/dL Est GFR ( Amer) 57 L (> 60) Est GFR (Non-Af Amer) 47 L (> 60) BUN/Creatinine Ratio 21 (6-26) Glucose 86 (70-99) mg/dL Calculated Osmolality 293 (280-300) Lactic Acid 0.7 (0.5-2.2) mmol/L Calcium 8.3 L (8.6-10.8) mg/dL Phosphorus 2.8 (2.3-4.7) mg/dL Magnesium 1.4 L (1.6-2.6) mg/dL Total Bilirubin 0.6 (0.2-1.2) mg/dL AST 43 H (5-34) Units/L ALT 20 (0-55) Units/L Alkaline Phosphatase 115 (38-126) Units/L Creatine Kinase 721 H (29-168) Units/L Troponin I (0-0.03) ng/mL Serum Total Protein 5.5 L (6.0-8.3) g/dL Albumin 2.4 L (3.5-5.0) g/dL Globulin 3.1 (2.4-3.5) g/dL Albumin/Globulin Ratio 0.8 L (1.1-2.2) TSH 0.018 L (0.350-4.840) mcIU/mL 06/05/17 Range/Units 13:14 WBC (4.3-11.1) K/mcL RBC (3.82-4.97) M/mcL Hgb (11.5-15.4) g/dL Hct (35.3-44.9) % MCV (83.0-100.0) fL MCH (28.0-33.3) pg MCHC (31.6-35.5) g/dL RDW (11.5-14.5) % Plt Count (140-400) K/mcL MPV (9.4-12.4) fL Immature Gran % (0-4) % Seg Neutrophils % % Lymphocytes % % Monocytes % % Eosinophils % % Basophils % % Neutrophils # (1.6-8.9) K/mcL Lymphocytes # (0.6-4.6) K/mcL Monocytes # (0.0-1.3) K/mcL Eosinophils # (0.0-0.6) K/mcL Basophils # (0.0-0.2) K/mcL Sodium (136-145) mEq/L Potassium (3.5-4.5) mEq/L Chloride (98-109) mEq/L Carbon Dioxide (19-29) mEq/L BUN (7-20) mg/dL Creatinine (0.57-1.11) mg/dL Est GFR ( Amer) (> 60) Est GFR (Non-Af Amer) (> 60) BUN/Creatinine Ratio (6-26) Glucose (70-99) mg/dL Calculated Osmolality (280-300) Lactic Acid (0.5-2.2) mmol/L Calcium (8.6-10.8) mg/dL Phosphorus (2.3-4.7) mg/dL Magnesium (1.6-2.6) mg/dL Total Bilirubin (0.2-1.2) mg/dL AST (5-34) Units/L ALT (0-55) Units/L Alkaline Phosphatase (38-126) Units/L Creatine Kinase (29-168) Units/L Troponin I 0.04 H* (0-0.03) ng/mL Serum Total Protein (6.0-8.3) g/dL Albumin (3.5-5.0) g/dL Globulin (2.4-3.5) g/dL Albumin/Globulin Ratio (1.1-2.2) TSH (0.350-4.840) mcIU/mL - Radiology Data Radiology results reviewed: Yes I reviewed the patient's radiology results. Chest X-Ray 06/05/17 12:21 IMPRESSION: Stable mild cardiomegaly. No acute pulmonary disease. D/ / Raul Crespo MD / Raul Crespo MD Interpreting Provider: Raul Crespo MD Head CT 06/05/17 12:21 IMPRESSION: Mild atrophy and white matter changes chronic small vessel ischemic disease. No acute intracranial abnormality or significant interval change. D/ / Deb Duran MD / Deb Duran MD Interpreting Provider: Deb Duran MD - EKG Data EKG attestation: Yes I reviewed and interpreted this EKG. EKG shows normal: sinus rhythm Rate: bradycardia (57 bpm sinus bradycardia SC 213 QRS 93 QTC [address] segment elevations or depressions) When compared to previous EKG there are: no significant changes
[2017-06-05 13:28] LABS: Basophils % 0.2 %; Eosinophils # 0.2 K/mcL (0.0-0.6); Eosinophils % 1.5 %; Hematocrit 36.5 % (35.3-44.9); Hemoglobin 12.1 g/dL (11.5-15.4); Immature Granulocytes % 0.3 % (0-4); Lymphocytes # 1.8 K/mcL (0.6-4.6); Lymphocytes % 17.1 %; Mean Corpuscular HGB Conc 33.2 g/dL (31.6-35.5); Mean Corpuscular Hemoglobin 30.9 pg (28.0-33.3); Mean Corpuscular Volume 93.1 fL (83.0-100.0); Mean Platelet Volume 9.6 fL (9.4-12.4); Monocytes % 9.2 %; Neutrophils # 7.6 K/mcL (1.6-8.9); Platelet Count 225 K/mcL (140-400); Red Blood Count 3.92 M/mcL (3.82-4.97); Red Cell Distribution Width 15.1 % (11.5-14.5); Segmented Neutrophils % 71.7 %
[2017-06-05 13:42] LABS: Albumin 2.4 g/dL (3.5-5.0); Albumin/Globulin Ratio 0.8 (1.1-2.2); Bilirubin,Total 0.6 mg/dL (0.2-1.2); Calcium 8.3 mg/dL (8.6-10.8); Globulin 3.1 g/dL (2.4-3.5); Magnesium 1.4 mg/dL (1.6-2.6); Phosphorous 2.8 mg/dL (2.3-4.7); Potassium 3.5 mEq/L (3.5-4.5); Total Protein 5.5 g/dL (6.0-8.3)
[2017-06-05] MEDS ORDERED: Magnesium Sulfate 1 GM in D5% in Water 100 ML IVPB ONE ×2 (13:53→15:16)
[2017-06-05 14:02] LABS: Thyroid Stimulating Hormone 0.018 mcIU/mL (0.350-4.840)
[2017-06-05 14:45] LABS: Bilirubin,Urine Negative (Negative); Blood,Urine Negative (Negative); Clarity,Urine Clear (Clear); Color,Urine Yellow (Yellow); Glucose,Urine (UA) Normal (Normal); Ketones,Urine Trace mg/dL (Negative); Leukocyte Esterase,Urine Negative (Negative); Nitrite,Urine Negative (Negative); Protein,Urine Negative (Neg-Trace); Specific Gravity,Urine 1.007 (1.010-1.025); Urobilinogen,Urine Normal (Normal)
--- NOTE | 2017-06-05 15:22 | Internal Med History&Physical ---
Date of Encounter: 06/05/17 Time of Encounter: 15:19 Assessment and Plan (1) Falls frequently Current visit: Yes Status: Acute Multifactorial, due to deconditioning, dehydration and orthostasis. Patient is orthostatic on arrival to emergency room. No focal weakness. PT/OT and social insurance administrator to see. Patient has mild elevation of CPK. will hydrate. (2) Hyperthyroidism Current visit: Yes Status: Acute TSH is significantly low. This is likely related to medication induced hyperthyroidism. This may be responsible for her weight loss shakiness diarrhea...etc. will decrease levothyroxine dose on discharge. Because of weight loss will also check hemoglobin A-1 C. (3) Elevated troponin I level Current visit: Yes Status: Acute likely NSTEMI pe 2 due to demand ischemia Internal Medicine - H&P: HPI Chief complaint: recerrent falls History of present illness: Ms. Santos is a 76 year old female with multiple medical problems including hypothyroidism on levothyroxine, hypertension, peripheral vascular disease presents to the emergency room today with main complain of generalized weakness ; false. Patient has had 4 falls over the past 2 weeks. She denies loss of consciousness prior to these falls and thinks she just loses her balance. She has also been feeling more shaky and jittery. She has been losing weight despite good appetite. She has lost approximately 16 pounds in the past one month. She denies any focal weakness tingling numbness in any extremity facial symmetry or speech slurriness. She denies any fever chills expectoration urinary symptoms. Past Med Surg Social Fam HX - Past Medical History Medical history: coronary artery disease, hyperlipidemia, hypertension, thyroid disease Psychiatric history: no psych history - Social History Smoking Status: Current every day smoker Smokeless Tobacco Status: No Alcohol use: none Drug use: none - Family History Father Living Status: Hx Family Cardiac Disorders: Yes ([place]) Internal Medicine - H&P: Meds Amlodipine Besylate 10 mg PO DAILY 05/07/17 [History] Aspirin 325 mg PO DAILY 05/07/17 [History] Atenolol 100 mg PO DAILY 05/07/17 [History] Atorvastatin [Lipitor] 40 mg PO HS 05/07/17 [History] Clopidogrel [Plavix] 75 mg PO DAILY 05/07/17 [History] Cyclobenzaprine [Flexeril] 10 mg PO HS PRN 05/07/17 [History] Levothyroxine [Synthroid] 112 mcg PO 0630 05/07/17 [History] Lisinopril [Zestril] 10 mg PO BID 05/07/17 [History] Omeprazole [PriLOSEC] 40 mg PO DAILY PRN 05/07/17 [History] Tramadol HCl [Ultram] 50 mg PO BID PRN 05/07/17 [History] Zolpidem [Ambien] 10 mg PO HS PRN 05/07/17 [History] Diclofenac Potassium 50 mg PO BID 06/05/17 [History] Sucralfate [Carafate] 1 gm PO BID 06/05/17 [History] 3 Allergy/AdvReac Type Severity Reaction Status Date / Time Sulfa (Sulfonamide Allergy Hives Verified 06/05/17 11:59 Antibiotics) All Systems PM: A 10-system review of systems was performed and is negative for pertinent findings except as documented above in the HPI. Review of systems: 10 point review of systems is negative except for HPI - Constitutional Vitals: Temp Pulse Resp BP Pulse Ox 97.5 F L 53 15 102/48 98 06/05/17 14:50 06/05/17 14:50 06/05/17 14:50 06/05/17 14:50 06/05/17 14:50 Exam: Gen.: patient is alert oriented times 3 cardiac: normal S1 S2 no additional sounds or murmurs chest: no active wheezing or bronchial breathing abdomen soft nontender nondistended normal bowel sounds lower extremity no swelling. Neuro: no new focal deficits Internal Med - H&P Results - Labs CBC & Chem 7: 06/05/17 13:14 06/05/17 13:14 Labs: Urine 06/05/17 Range/Units 14:32 Urine Color Yellow (Yellow) Urine Clarity Clear (Clear) Urine pH 6.0 (5.0-8.0) pH Units Ur Specific [place] 1.007 L (1.010-1.025) Urine Protein Negative (Neg-Trace) mg/dL Urine Glucose (UA) Normal (Normal) mg/dL
[2017-06-05] MEDS: 0.9 % Sodium Chloride 1,000 ML IVC SCH (15:44)
[2017-06-05] MEDS ORDERED: Sucralfate 1 GM TABLET PO SCH (21:00)
[2017-06-06] MEDS: 0.9 % Sodium Chloride 1,000 ML IVC SCH (03:15)
[2017-06-06 03:30] LABS: Basophils % 0.3 %; Eosinophils # 0.2 K/mcL (0.0-0.6); Eosinophils % 2.5 %; Hematocrit 32.6 % (35.3-44.9); Hemoglobin 10.8 g/dL (11.5-15.4); Immature Granulocytes % 0.2 % (0-4); Lymphocytes # 2.3 K/mcL (0.6-4.6); Lymphocytes % 26.3 %; Mean Corpuscular HGB Conc 33.1 g/dL (31.6-35.5); Mean Corpuscular Hemoglobin 30.8 pg (28.0-33.3); Mean Corpuscular Volume 92.9 fL (83.0-100.0); Mean Platelet Volume 9.7 fL (9.4-12.4); Monocytes % 11.7 %; Neutrophils # 5.3 K/mcL (1.6-8.9); Platelet Count 199 K/mcL (140-400); Red Blood Count 3.51 M/mcL (3.82-4.97); Red Cell Distribution Width 15.1 % (11.5-14.5)
[2017-06-06 03:41] LABS: BUN/Creatinine Ratio 22 (6-26); Blood Urea Nitrogen 15 mg/dL (7-20); Calcium 7.4 mg/dL (8.6-10.8); Carbon Dioxide 21 mEq/L (19-29); Chloride 112 mEq/L (98-109); Glucose 58 mg/dL (70-99); Magnesium 1.7 mg/dL (1.6-2.6); Osmolality,Calculated 293 (280-300); Potassium 3.7 mEq/L (3.5-4.5); Sodium 142 mEq/L (136-145); eGFR For African Americans > 60 (> 60); eGFR For Non-African Americans > 60 (> 60)
[2017-06-06 06:39] VITALS: BP 100/54
[2017-06-06] MEDS ORDERED: Aspirin 325 MG TABLET PO SCH (09:00)
--- NOTE | 2017-06-06 11:17 | Discharge Summary ---
Date of Encounter: 06/06/17 Time of Encounter: 11:15 - Discharge Diagnosis (1) Falls frequently Priority: Primary Status: Acute Comments: Ms. Santos is a 76 year old female with multiple medical problems including hypothyroidism on levothyroxine, hypertension, peripheral vascular disease who presented to [facility] on 06/05/2017 with complaints of generalized weakness and falls. She was placed in observation status for further work-up and treatment, however, the patient left AMA on 09/06/2016 before hospital work-up was completed. (2) Elevated troponin I level Priority: Primary Status: Acute (3) Hyperthyroidism Priority: Primary Status: Acute - Discharge Medications Home Medications: Amlodipine Besylate 10 mg PO DAILY 05/07/17 [History] Aspirin 325 mg PO DAILY 05/07/17 [History] Atenolol 100 mg PO DAILY 05/07/17 [History] Atorvastatin [Lipitor] 40 mg PO HS 05/07/17 [History] Clopidogrel [Plavix] 75 mg PO DAILY 05/07/17 [History] Cyclobenzaprine [Flexeril] 10 mg PO HS PRN 05/07/17 [History] Levothyroxine [Synthroid] 112 mcg PO 0630 05/07/17 [History] Lisinopril [Zestril] 10 mg PO BID 05/07/17 [History] Omeprazole [PriLOSEC] 40 mg PO DAILY PRN 05/07/17 [History] Tramadol HCl [Ultram] 50 mg PO BID PRN 05/07/17 [History] Zolpidem [Ambien] 10 mg PO HS PRN 05/07/17 [History] Diclofenac Potassium 50 mg PO BID 06/05/17 [History] Sucralfate [Carafate] 1 gm PO BID 06/05/17 [History] Allergies/Adverse Reactions: 3 Allergy/AdvReac Type Severity Reaction Status Date / Time Sulfa (Sulfonamide Allergy Hives Verified 06/05/17 11:59 Antibiotics) Date of admission: 06/05/17 17:36 Primary care physician: Nicole Moraes CNP Discharging clinician: Krys Tripathi Anticipated date of discharge: 06/06/17 - Patient Status Disposition: Left Against Medical Advice Condition: Undetermined - Discharge Instructions Follow Up With: Nicole Moraes CNP [Primary Care Provider] - 06/12/17 10:00 am Interval History: Patient was not examined as she left AMA Hospital course: Ms. Santos is a 76 year old female with multiple medical problems including hypothyroidism on levothyroxine, hypertension, peripheral vascular disease who presented to [facility] on 06/05/2017 with complaints of generalized weakness and falls. She was placed in observation status for further work-up and treatment, however, the patient left AMA on 09/06/2016 before hospital work-up was completed. - Time Spent with Patient Total time spent providing and/or coordinating discharge services: - Constitutional Vitals: Temp Pulse Resp BP Pulse Ox 97.9 F 75 16 100/54 91 06/06/17 06:38 06/06/17 06:38 06/06/17 06:38 06/06/17 06:38 06/06/17 06:38
--- NOTE | 2017-06-06 19:02 | Electrocardiograph Report ---
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
[2017-06-09 11:59] LABS: CK-BB (CK isoenzymes) 0 % (0-0); CK-MB (CK isoenzymes) 3 % (0-4); CK-MM (CK-isoenzymes) 97 % (96-100)
[2017-06-09 11:59] LABS: CK-BB (CK isoenzymes) 0 % (0-0); CK-MB (CK isoenzymes) 4 % (0-4); CK-MM (CK-isoenzymes) 96 % (96-100)
[2017-06-10 06:31] LABS: CK Total (Ck Isoenzymes) 508 U/L (20-180)
[2017-06-10 06:40] LABS: CK Total (Ck Isoenzymes) 677 U/L (20-180)
== END 2017-06-06 09:50 | disposition left against medical advice (07) | DRG 641 ==
LOC: EMEROO 11:51 → 3BNU 11:51
PROVIDERS: ADMIT Registered Nurse; ATTEND Registered Nurse

== ENCOUNTER 2022-02-01 09:15 | Inpatient (IN) ==
[2022-02-01] MEDS ORDERED: *HR* LORazepam Oral Conc 2 MG/ML SL PRN (15:10)
[2022-02-01] MEDS: Haloperidol Oral Conc 10 MG/5 ML UDC PO SCH ×2 (17:13→22:18)
[2022-02-02] MEDS ORDERED: Acetaminophen 325 MG TABLET PO SCH (09:00)
[2022-02-02] MEDS: polyethylene glycoL 3350 17 GM POWD.PACK PO SCH (10:38)
[2022-02-02] MEDS: Haloperidol Oral Conc 10 MG/5 ML UDC PO SCH ×4 (10:38→20:00)
[2022-02-02] MEDS: Morphine Sulfate Oral CONC 10 MG/0.5 ML ORAL.SYG SL PRN (20:00)
[2022-02-03] MEDS: polyethylene glycoL 3350 17 GM POWD.PACK PO SCH (08:05)
[2022-02-03] MEDS: Haloperidol Oral Conc 10 MG/5 ML UDC PO SCH ×4 (08:05→21:29)
[2022-02-03] MEDS: Morphine Sulfate Oral CONC 10 MG/0.5 ML ORAL.SYG SL PRN ×2 (08:05→21:30)
[2022-02-04] MEDS: Haloperidol Oral Conc 10 MG/5 ML UDC PO SCH ×4 (11:02→21:34)
[2022-02-04] MEDS: Morphine Sulfate Oral CONC 10 MG/0.5 ML ORAL.SYG SL PRN ×3 (11:02→21:34)
[2022-02-04] MEDS: polyethylene glycoL 3350 17 GM POWD.PACK PO SCH (11:02)
[2022-02-05] MEDS: polyethylene glycoL 3350 17 GM POWD.PACK PO SCH (08:15)
[2022-02-05] MEDS: Haloperidol Oral Conc 10 MG/5 ML UDC PO SCH ×4 (08:15→21:29)
[2022-02-05] MEDS: Morphine Sulfate Oral CONC 10 MG/0.5 ML ORAL.SYG SL PRN (16:17)
[2022-02-05 18:36] VITALS: TEMP 97.5
[2022-02-06 07:41] VITALS: BP 140/81; PULSE 83; O2SAT 87
[2022-02-06] MEDS: Haloperidol Oral Conc 10 MG/5 ML UDC PO SCH (09:30)
[2022-02-06] MEDS: polyethylene glycoL 3350 17 GM POWD.PACK PO SCH (09:35)
== END 2022-02-06 10:30 | disposition hospice, home (50) | DRG 951 ==
LOC: 2ANU 12:37
PROVIDERS: ADMIT Internal Medicine Hospice and Palliative Medicine; ATTEND Internal Medicine Hospice and Palliative Medicine